=== PATIENT | male | born 1990 | race Caucasian/White ===

== ENCOUNTER 2018-07-01 18:00 | Emergency (ER) | payer SELFPAY ==
[~2018-07-01] VITALS: Ht 175.3 cm; Wt 93.0 kg
[2018-07-01 18:21] VITALS: BP 133/73; Ht 175.3 cm; Wt 93.0 kg
== END 2018-07-01 21:02 | disposition home or self-care (01) ==
LOC: ED 18:00
DX: L97.529 Non-pressure chronic ulcer of other part of left foot with unspecified severity (principal); L08.9 Local infection of the skin and subcutaneous tissue, unspecified
CPT/HCPCS: 82962